=== PATIENT | male | born 1970 | race Caucasian/White ===

== ENCOUNTER 2019-01-22 08:26 | Inpatient (IN) | payer OTHER, SELFPAY ==
[2019-01-22] VITALS (20 sets, daily range): BP systolic 118–170; BP diastolic 73–106; PULSE 81–106; RESP 14–26; TEMP 36.8–36.9; O2SAT 92–100; BMI 33.7; BMI 35.8
--- NOTE | 2019-01-22 08:34 | RAD_ITS ---
STUDY: X-RAY - RIGHT TIBIA AND FIBULA REASON FOR EXAM: Male, 48 years old. Status post fall TECHNIQUE: 3 view(s) of the tibia and fibula were obtained. COMPARISON: None. FINDINGS: Trimalleolar ankle fracture with ankle mortise dislocation. No evidence of proximal tibial or fibular fracture. RAD/Tibia & Fibula 2 Views IMPRESSION: Trimalleolar ankle fracture with ankle mortise dislocation Electronically Signed: Waldemar Batista DO at 9:34 EST Tel , Service support ,
--- NOTE | 2019-01-22 08:35 | RAD_ITS ---
STUDY: X-RAY - RIGHT FOOT CLINICAL: Male, 48 years old. Fall TECHNIQUE: 2 view(s) of the foot. COMPARISON: None. FINDINGS: Comminuted and displaced ankle fracture. Right foot itself appears within normal limits RAD/Foot 2 Views IMPRESSION: Ankle fracture with dislocation. Right foot itself appears within normal limits Electronically Signed: Waldemar Batista DO at 9:33 EST Tel , Service support ,
--- NOTE | 2019-01-22 08:35 | ED.DCSUM_ITS ---
History of Present Illness Chief Complaint: Lower Extremity Injury Detail of Chief Complaint: Right ankle injury Informant: Patient Onset: Today Context: Sudden Onset Current Severity: Mild Maximum Severity: Moderate Narrative: Patient presents with injury to his right ankle. Patient states he went out to walk his dog this morning. He went to walk around a puddle and stepped into wet grass. His dog pulled on the leash and the patient fell, injuring his right ankle. He does have deformity noted. Patient denies any other injury from the fall. Past Medical History - Allergies and Home Meds Allergies/Adverse Reactions: Allergies No Known Allergies Allergy (Verified 01/22/19 08:26) Primary Care Physician: Yaniv Ring MD [Primary Care Provider] - Past Medical History: - - Prior finger and wrist surgery Smoking Status: Never smoker Review of Systems General: Denies: Chills, Fever Eyes: Denies: Visual changes - bilaterally ENT: Denies: Bilateral ear pain Cardiovascular: Denies: Chest pain Respiratory: Denies: Dyspnea, Cough Gastrointestinal: Denies: Abdominal pain, Nausea, Vomiting, Diarrhea Genitourinary: Denies: Dysuria Musculoskeletal: Reports: Arthralgias, Extremity Pain. Denies: Back pain Skin: Denies: Rash Neurological: Denies: Headache Allergy: Denies: Uticaria Physical Exam Vital Signs/Narrative: Vital Signs Temp Pulse Resp BP Pulse Ox 01/22/19 08:26 98.3 F 95 16 170/91 H 98 Inital Vital Signs reviewed: Yes General: Well nourished, Well developed Head: Normocephalic ENT: Moist mucous membranes Neck: Supple Cardiovascular: Regular rate, Regular rhythm Respiratory: No distress, CTA bilaterally Abdomen: Soft, Nontender Extremities: - - Deformity noted to right ankle and distal tib-fib. Palpable distal pulses. Good cap refill distally. No tenderness at the knee or hip. Skin: Normal color Neurological: Alert, Oriented x3 Psychological: Normal affect Diagnostic/Tx/Re-eval Impressions Tibia/Fibula X-Ray 01/22/19 08:34 IMPRESSION: Trimalleolar ankle fracture with ankle mortise dislocation Electronically Signed: Waldemar Batista DO at 9:34 EST Tel , Service support , Foot X-Ray 01/22/19 08:35 IMPRESSION: Ankle fracture with dislocation. Right foot itself appears within normal limits Electronically Signed: Waldemar Batista DO at 9:33 EST Tel , Service support , - Medical Decision Making Patient was given propofol and right ankle reduction was attempted. Postreduction x-rays reveal continued dislocation. Patient was sedated a second time and attempted ankle reduction with similar results on postreduction x-ray. I spoke with Dr. Moore and Dr. Santiago. Dr. Santiago presented to the emergency room and was able to reduce the ankle at bedside with C-arm visualization for confirmation. Dr. Santiago and will admit the patient to the hospital for surgery this weekend. Procedures - Lower Extremity Splints Lower Extremity Splint: Kamran Berman Splint Fabrication: Fabricated Location: Right Procedure(s): Patient was consented for procedural sedation with ankle reduction and splinting. Patient received a total of 140 mg of propofol. Right ankle was reduced and placed in a posterior plaster sugar tong splint. Following splint application there is good cap refill in his toes and can wiggle toes. ED Disposition - Plan for ED Patient: Disposition: Acute [facility] Diagnosis: Ankle fracture Referrals: Yaniv Ring MD [Primary Care Provider] -
[2019-01-22] MEDS: Ondansetron 4 MG/2 ML Vial IV (08:44)
[2019-01-22] MEDS: Morphine 4 MG/ML Syringe IV ×2 (08:44→11:25)
[2019-01-22] MEDS: 0.9% Normal Saline 1,000 ML 150 ML IV (08:44)
[2019-01-22] MEDS: Propofol 200 MG/20 ML Vial IV BOLUS ×2 (09:35→11:25)
--- NOTE | 2019-01-22 09:48 | RAD_ITS ---
STUDY: X-RAY - RIGHT ANKLE REASON FOR EXAM: Male, 48 years old. Trauma. Post reduction views TECHNIQUE: 3 view(s) of the ankle. COMPARISON: None. FINDINGS: Displaced fractures of the posterior and lateral malleoli. Anterior dislocation of the tibiotalar joint. Normal visualized talus and calcaneus. The visualized subtalar, talonavicular, calcaneocuboid and tarsal articulations are normal. The soft tissue structures are unremarkable. RAD/Ankle min 3 Views IMPRESSION: Displaced fractures of the posterior and lateral malleoli. Anterior dislocation of the tibiotalar joint. Electronically Signed: Joe Amin, at 7:08 EST Tel , Service support ,
--- NOTE | 2019-01-22 11:11 | RAD_ITS ---
STUDY: X-RAY - RIGHT ANKLE REASON FOR EXAM: Male, 48 years old. Post reduction TECHNIQUE: 1 view(s) of the ankle. COMPARISON: 01/22/2019 FINDINGS: Evaluation is limited as only a single lateral view was provided. Again noted is a trimalleolar fracture with stable anterior dislocation of the tibia relative to the talus. There is soft tissue swelling noted. RAD/Ankle 2 Views IMPRESSION: No significant change demonstrated on this limited, single view exam. Electronically Signed: Angelo Mercado, at 11:44 EST Tel , Service support ,
--- NOTE | 2019-01-22 11:29 | ED.RN ---
MODERATE SEDATION REPEATED DUE TO DISPLACMENT.
--- NOTE | 2019-01-22 11:32 | RAD_ITS ---
STUDY: X-RAY - RIGHT ANKLE REASON FOR EXAM: Male, 48 years old. Post reduction images of ankle fracture dislocation. TECHNIQUE: 5 intraoperative digital documentation view(s) of the ankle. COMPARISON: January 22, 2019, earlier in the day. FINDINGS: 4 seconds of fluoroscopy time were utilized for a total DAP of 0.9134 cGy/cm2. Images show partial reduction of the fracture dislocation. RAD/Ankle min 3 Views IMPRESSION: Digital documentation images as described. Electronically Signed: Hayden Bello MD at 14:18 EST , Service support ,
--- NOTE | 2019-01-22 12:42 | RAD_ITS ---
STUDY: X-RAY - RIGHT ANKLE REASON FOR EXAM: Male, 48 years old. Post reduction TECHNIQUE: 3 view(s) of the ankle. COMPARISON: January 22, 2019 ankle x-ray 9:50 AM FINDINGS: Patient is in a splint. There is reduction of the dislocation of the tibiotalar joint. There is a visualized fracture of the fibula and posterior malleolus. There is still a widened appearance of the tibial talar joint on the oblique view. RAD/Ankle min 3 Views IMPRESSION: Right ankle fracture dislocation status post reduction of the tibiotalar dislocation. Electronically Signed: Lourdes Garrido MD at 13:58 EST Tel , Service support ,
--- NOTE | 2019-01-22 12:45 | HP.PCM_ITS ---
Problem List (1) Fracture of ankle, trimalleolar, right, closed Status: Acute (2) Right ankle pain Status: Acute History of Present Illness Date of Admission: 01/22/19 Chief Complaint: ankle fracture The patient is a 48 year old M with significant past medical history of prediabetes was walking his dog who pulled on the leash and caused him to fall on his right lower extremity. He heard a pop and was taken to the emergency room in which a trimalleolar ankle fracture was identified. Reduction in the emergency room was performed and this was not retained. I performed an additional reduction and splinted this with improved under propofol sedation. He rates his pain after reduction is a 3 out of 10. He denies other injuries this afternoon or any loss of consciousness. He denies other recent history of fractures. He is very active at work and would like to proceed with surgery given this is unstable. 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 Smoking Status: Never smoker Tobacco Use: Non-smoker Alcohol: Occasional - social alcohol use Drugs: None - *Family History Sibling History Items: Diabetes Review of Systems Constitutional: Denies: Fever, Fatigue Eyes: Denies: Vision Change HEENT: Denies: Sinus Drainage, Sore Throat, Visual Changes Cardiovascular: Denies: Chest Pain, Claudication, Orthopnea Respiratory: Denies: Shortness of Breath Gastrointestinal: Denies: Nausea, Vomiting Musculoskeletal: Reports: Joint Tenderness, Leg Pain Skin: Denies: Wounds Neurological: Denies: Numbness Hematologic/ Lymphatic: Denies: Easy Bruising, Easy Bleeding, Hx of blood clot VTE Information - Inpt Only VTE Present on Admission: No VTE Mechan Device Prophylaxis: SCD's VTE Pharm Prophylaxis ordered?: Yes Patient Problems: Active and Suspected Problems Fracture of ankle, trimalleolar, right, closed (Acute) Right ankle pain (Acute) Ankle fracture (Acute) - Physical Exam Vitals/I&O's: Vital Signs Temp Pulse Resp BP Pulse Ox 98.3 F 87 22 H 128/80 H 100 01/22/19 08:26 01/22/19 12:41 01/22/19 12:41 01/22/19 12:41 01/22/19 12:41 Oxygen Flow Rate (L/min) [6] 3 Oxygen Flow Rate (L/min) [5] 2 Oxygen Flow Rate (L/min) [4] 99 Oxygen Flow Rate (L/min) [2] 4 Oxygen Flow Rate (L/min) [1 ( 4 Initial Baseline)] Oxygen Flow Rate (L/min) 4 Oxygen Delivery Method [6] Nasal Cannula Oxygen Delivery Method [5] Nasal Cannula Oxygen Delivery Method [4] Nasal Cannula Oxygen Delivery Method [3] Nasal Cannula Oxygen Delivery Method [2] Nasal Cannula Oxygen Delivery Method [1 ( Nasal Cannula Initial Baseline)] Oxygen Delivery Method Nasal Cannula Weight: 106.594 kg Body Mass Index (BMI) 33.7 General: Alert, Oriented x3, Cooperative HEENT: Atraumatic Extremities: No cyanosis, Capillary Refill Less than 3 Seconds, No Calf Tenderness, Diminished Peripheral Pulses, Edema - Mild to right lower extremity Skin: - - There are no skin discontinuities or fracture blisters identified. No distinct ecchymosis or erythema noted at this time Musculoskeletal: - - No skin tenting noted after ankle reduction performed. The ankle is in a maintained rectus position with splint in place. The compartments of the right lower extremity and foot remain soft to palpate Neurological: - - Epicritic sensation is intact to light touch to foot and ankle dermatomes right lower extremity Psych/Mental Status: Normal Affect, Appropriate Current Medications Sodium Chloride () 1,000 mls @ 150 mls/hr IV .Q6H40M [facility] Last Admin: 01/22/19 08:44 Dose: 150 mls/hr Documented by: Assessment/Plan All Active Problems Fracture of ankle, trimalleolar, right, closed (Acute) Right ankle pain (Acute) Ankle fracture (Acute) Stable right trimalleolar ankle fracture versus pilon suspected Right ankle pain Prediabetes I reviewed and discussed his case including pre-and post reduction x-rays which demonstrate improved alignment of his ankle fracture dislocation of the right lower extremity. No additional fractures or dislocations are noted upon evaluation of the right foot x-rays. At the time of evaluation his neurovascular status appeared to be intact with out any apparent fracture blisters. This ankle fracture pattern is very unstable and I am concerned this is a P line. I recommend surgical intervention. A CAT scan was ordered to better understand the fracture pattern for surgical planning. The splint was reapplied in a padded manner in a rectus position. He is advised to ice and elevate for pain inflammation management. Strict nonweightbearing to the right lower extremity is recommended. The tentative plan is to go to the operating room for repair tomorrow pending CT scan results. I will also asked medicine team to be in consultation for preoperative assessment given his medical history and for preoperative optimization which will be greatly appreciated. The preoperative indications, planned procedure, possible benefits, risk, complications, and anticipated healing time management were discussed in detail detail with the patient today. He understands risk and complications may include are not limited to the following: Pain, swelling, scarring, need for further surgery the common hardware failure, chronic pain, allergic reaction, blood clot, arthritis, infection, delayed or nonhealing, loss of limb, function, or life. No guarantees were made. The informed surgical consent will be obtained likely for open reduction internal fixation versus external fixation of right ankle fracture after I reviewed the advanced imaging studies. I will place preoperative orders after review this imaging including n.p.o., hold anticoagulation medication, etc. Preoperative diagnostic data was ordered including CBC, CMP, and EKG. Please do not hesitate to call if you have any questions. Bhavna Santiago DPM, FACF[facility] [phone]
--- NOTE | 2019-01-22 13:16 | CT_ITS ---
STUDY: CT RIGHT ANKLE WITHOUT CONTRAST REASON FOR EXAM: Male, 48 years old. Status post fall, fracture RADIATION DOSAGE (If Supplied By Facility): CTDIvol = ( 15.35 ) mGy, DLP = ( 537.98 ) mGycm TECHNIQUE: Thin section transaxial imaging of the ankle was obtained, with sagittal and coronal reconstructed images. Individualized dose optimization techniques were used for this CT. COMPARISON: Right ankle January 22, 2019 FINDINGS: There is a comminuted fracture of the distal tibia with fracture lines extending into the medial malleolus with widening of the tibiotalar joint, posterior malleolus with a gap of at least 3.5 mm seen at the talar surface. There is a comminuted fracture of the distal fibula with the fracture sitting slightly displaced to the right at the fracture site. The tibial talar joint isn''t widened both on the medial and the lateral side. The sagittal view shows a slightly open appearance of the anterior aspect of the ankle joint with a splayed appearance of the tibia over the talus. The talus appears intact. Normal talus, calcaneus, navicular and cuboid tarsal bones. Normal subtalar, talonavicular and calcaneocuboid articulations. Normal navicular-cuneiform, cuneiform tarsal bones and intercuneiform articulations. Normal tarsometatarsal articulations and visualized metatarsi. There is diffuse soft tissue edema. CT/Coronals Sag Multi Obl 3-D Rec IMPRESSION: Trimalleolar fracture with disruption of the ankle mortise which includes Comminuted fracture of the distal tibia with persistent displacement and dislocation. Comminuted fracture of the distal fibula. Electronically Signed: Lourdes Garrido MD at 15:04 EST Tel , Service support ,
--- NOTE | 2019-01-22 13:16 | CT_ITS ---
STUDY: CT RIGHT ANKLE WITHOUT CONTRAST REASON FOR EXAM: Male, 48 years old. Status post fall, fracture RADIATION DOSAGE (If Supplied By Facility): CTDIvol = ( 15.35 ) mGy, DLP = ( 537.98 ) mGycm TECHNIQUE: Thin section transaxial imaging of the ankle was obtained, with sagittal and coronal reconstructed images. Individualized dose optimization techniques were used for this CT. COMPARISON: Right ankle January 22, 2019 FINDINGS: There is a comminuted fracture of the distal tibia with fracture lines extending into the medial malleolus with widening of the tibiotalar joint, posterior malleolus with a gap of at least 3.5 mm seen at the talar surface. There is a comminuted fracture of the distal fibula with the fracture sitting slightly displaced to the right at the fracture site. The tibial talar joint isn''t widened both on the medial and the lateral side. The sagittal view shows a slightly open appearance of the anterior aspect of the ankle joint with a splayed appearance of the tibia over the talus. The talus appears intact. Normal talus, calcaneus, navicular and cuboid tarsal bones. Normal subtalar, talonavicular and calcaneocuboid articulations. Normal navicular-cuneiform, cuneiform tarsal bones and intercuneiform articulations. Normal tarsometatarsal articulations and visualized metatarsi. There is diffuse soft tissue edema. CT/Extremity Lower without Contra IMPRESSION: Trimalleolar fracture with disruption of the ankle mortise which includes Comminuted fracture of the distal tibia with persistent displacement and dislocation. Comminuted fracture of the distal fibula. Electronically Signed: Lourdes Garrido MD at 15:04 EST Tel , Service support ,
--- NOTE | 2019-01-22 13:52 | PCM.CONS.GEN ---
Problem List (1) Obesity (BMI 30.0-34.9) Status: Chronic (2) Glucose intolerance Status: Chronic Comment: HGBA1C has been as high as 6.0 in the past....but then he lost 25 lbs (3) Low HDL (under 40) Status: Chronic (4) Dyslipidemia Status: Chronic (5) Fracture of ankle, trimalleolar, right, closed Status: Acute (6) Right ankle pain Status: Acute Qualifiers: Chronicity: acute Qualified Code(s): M25.571 - Pain in right ankle and joints of right foot Reason for Consult Date of Consultation: 01/22/19 Reason for Consultation: R ankle pain and deformity after a fall History of Present Illness: The patient is a 48 year old M with a past medical history of prediabetes and obesity who was walking his dog today ( a 270 lb [place]ast[place]) and the dog pulled on the leash and caused him to fall on his right side. He immediately had pain in his R ankle. Ankle x-ray in the emergency room revealed a trimalleolar fracture with dislocation of the ankle mortise. The ankle was reduced in the ED by Dr. Santiago and a splint was applied. She plans on taking the pt to surgery on 01/23/19 for ORIF and has asked the hospitalist service to consult for medical management. Vital signs at presentation to the emergency department were temperature 98.3, pulse rate 95, blood pressure 170/91, respiratory rate 16 and pulse ox on room air ranged from 94 to 97%. No lab was drawn in the ED. An EKG was ordered but, not completed yet. His only medication is a testosterone booster. He does not have a PCP. He denies any hx of heart disease, HTN, HLD. He is a non-smoker....smoked for 1 year and quit at the age of 18. No FH of CAD. Denies CP with exertion or SOB with exertion. He works out at the gym regularly. Tells me that at one time his HGBA1C was 6.0 and then he went on a low carb diet and lost weight and the last HGBA1C was 5.6%. 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 Denies: Chills, Fever Eyes: Denies: Blurred vision HEENT: Denies: Head Aches, Sinus Congestion, Sinus Drainage Cardiovascular: Denies: Chest Pain, Chest Pressure, Chest Tightness, Edema, Heaviness, Light Headedness, Palpitations, Syncope Respiratory: Denies: Cough, Shortness of breath at rest, Sputum production Gastrointestinal: Denies: Abdominal Pain, Diarrhea, Nausea, Vomiting Genitourinary: Denies: Dysuria Musculoskeletal: Reports: Joint Pain - acute R ankle pain. Denies: Joint Tenderness Skin: Denies: Rash, Wounds Neurological: Denies: Numbness, Tingling, Focal weakness Psychiatric: Denies: Anxiety, Depression, Homicidal Ideations, Suicidal Ideations Endocrine: Denies: Hx of Thyroiditis Hematologic/ Lymphatic: Denies: Easy Bruising, Easy Bleeding, Hx of blood clot Patient Problems: Active and Suspected Problems Fracture of ankle, trimalleolar, right, closed (Acute) Right ankle pain (Acute) - Physical Exam Vitals/I&O's: Vital Signs Temp Pulse Resp BP Pulse Ox 98.3 F 85 20 H 128/76 H 98 01/22/19 08:26 01/22/19 12:52 01/22/19 12:52 01/22/19 12:52 01/22/19 12:52 Oxygen Flow Rate (L/min) [6] 3 Oxygen Flow Rate (L/min) [5] 2 Oxygen Flow Rate (L/min) [4] 99 Oxygen Flow Rate (L/min) [2] 4 Oxygen Flow Rate (L/min) [1 ( 4 Initial Baseline)] Oxygen Flow Rate (L/min) 4 Oxygen Delivery Method [6] Nasal Cannula Oxygen Delivery Method [5] Nasal Cannula Oxygen Delivery Method [4] Nasal Cannula Oxygen Delivery Method [3] Nasal Cannula Oxygen Delivery Method [2] Nasal Cannula Oxygen Delivery Method [1 ( Nasal Cannula Initial Baseline)] Oxygen Delivery Method Nasal Cannula Weight: 235 lb Body Mass Index (BMI) 33.7 General: Alert, Oriented x3, Cooperative, Well developed, Well nourished HEENT: Atraumatic, PERRLA, EOMI, Normocephalic Oral: Dry Mucosa Neck: Supple, No JVD, Negative Carotid Bruits, No Nodes, No Nuchal Rigidity, Trachea Midline Lungs: Clear to auscultation, Normal air movement Cardiovascular: Regular rate, Regular Rhythm, Normal S1, Normal S2, No murmurs, No Ectopic Activity, No rub noted, No Gallop Abdomen: Bowel Sounds Present, Soft, Non Tender, Non-Distended, Obese Extremities: No clubbing, No cyanosis, No edema, Capillary Refill Less than 3 Seconds, Peripheral Pulses Normal, - - denies numbness in the left foot and the toes are warm with intact sensation Skin: No rashes, No breakdown Musculoskeletal: No Tenderness to Palpation of Joints or Extremities, - - RLE is in a splint with heavy padding Neurological: Cranial nerves II-XII grossly intact, Neuro grossly intact Psych/Mental Status: Normal Affect, Appropriate Current Medications Hydrocodone Bitart/Acetaminophen ([place] 5mg-325mg) 1 tablet PO Q6H PRN PRN PRN Reason: Pain Score 4-5/10 Docusate Sodium (Colace) 100 mg PO BID PRN PRN PRN Reason: Constipation Sodium Chloride () 1,000 mls @ 150 mls/hr IV .Q6H40M [facility] Last Admin: 01/22/19 08:44 Dose: 150 mls/hr Documented by: Morphine Sulfate () 2 mg IV Q3H PRN PRN PRN Reason: Pain Score 6-10/10 Ondansetron HCl (Zofran) 4 mg IV Q8H PRN PRN PRN Reason: NAUSEA/VOMITING Assessment/Plan All Active Problems Fracture of ankle, trimalleolar, right, closed (Acute) Right ankle pain (Acute) Impressions 1. Closed traumatic trimalleolar fracture of the right ankle 2. Diabetes mellitus type 2 3. Dyslipidemia with LDL of 133 and an HDL of less than 40 4. Obesity Risk for serious complications from surgery are less than average. surgical risk calculator results placed on the chart. The testosterone increases risk of polycythemia and increases risk of DVT. I recommended he avoid using testosterone while he is non-weight bearing and in a cast. Will give 1 dose of Lovenox 40 mg now and restart anticoagulation after surgery when OK with Dr. Santiago. I informed him of the HGBA1C of 7.2 and he has already been seen by the [facility]er. Would start a stain and Glucophage post-op when taking a regular diet. Goal LDL is 70 or less. Encouraged him to find a PCP and he is going to follow up with Dr. Ring. Would send a copy of the DC summary to Dr. Ring and I will send him a copy of the consult with the patient's permission. Code Visit Inpatient E&M: 56892 Subs Hosp L3
[2019-01-22 14:04] LABS: Absolute Lymphocyte Count 2.25 X10^3/uL (0.83-4.51); Absolute Neutrophil Count 8.6 X10^3/uL (2.0-7.7); Basophil# 0.07 X10^3/uL; Basophil% 0.6 % (0-1); Eosinophil# 0.07 X10^3/uL; Eosinophils% 0.6 % (0-5); Hematocrit 45.1 % (40-54); Hemoglobin 15.7 g/dL (13.0-16.5); Lymphocyte # 2.25 X10^3/ul (4.0); Lymphocyte % 18.8 % (19-41); Mean Corp Hgb Conc 34.8 g/dL (32-36); Mean Corpuscular Hgb 32.7 pg (27.0-32.0); Mean Platelet Vol. 9.2 fl (6.2-12.0); Monocyte# 0.87 X10^3/uL; Monocyte% 7.3 % (0-10); NRBC Flagged by Analyzer 0 % (0-5); Neutrophil # 8.61 X10^3/uL (2.7-7.7); Neutrophil % 72.1 % (47-70); Platelet Count 252 K/mm3 (150-450); RBC Distribution Width SD 42.1 fl (35.1-43.9); White Blood Count 11.9 K/mm3 (4.4-11.0)
[2019-01-22 14:32] LABS: ALB/GLOB Ratio 1.2 RATIO (0.9-2.4); AST(SGOT) 11 U/L (15-37); Alanine Aminotransfer ALT/SGPT 36 U/L (16-61); Albumin, Serum 3.6 g/dL (3.2-5.0); Alkaline Phosphatase 61 U/L (45-117); Anion Gap 4 (5-15); BUN 12 mg/dL (7-18); BUN/Creat Ratio 12.7 RATIO (10-20); Calcium,Total 8.2 mg/dL (8.5-10.1); Chloride 107 mmol/L (98-107); Cholesterol 209 mg/dL (200); Creatinine, Serum 0.94 mg/dL (0.70-1.30); EST Glomerular Filtration Rate 90 mL/min (>60); Est Glom Filt Rate - Afr Amer 108 mL/min (>60); Estimated Creatinine Clearance 97.07 ml/min; Globulin 3.1 g/dL (2.2-4.2); Glucose 149 mg/dL (74-106); High Density Lipoprotein 38 mg/dL; Potassium 4.2 mmol/L (3.5-5.1); Protein, Total 6.7 g/dL (6.4-8.2); Sodium Level 139 mmol/L (136-145); Triglycerides 189 mg/dL; Very Low Density Lipoprotein 38 mg/dL (5-40)
[2019-01-22 14:46] LABS: Hemoglobin A1c 7.2 % (4.2-6.3)
[2019-01-22 15:19] LABS: International Normalized Ratio 1.1; Prothrombin Time (Protime)PT. 13.7 SECONDS (11.7-14.9)
[2019-01-22] MEDS: Enoxaparin 40 MG/0.4 ML Syringe SC (16:34)
[2019-01-22] MEDS: HYDROcodone Bitartrate/Apap 5/325 Tablet PO ×2 (16:34→23:16)
[2019-01-22 18:01] LABS: Bedside Glucose 233 mg/dL (70-110)
[2019-01-22] MEDS: Insulin Lispro 100 UNIT/ML INSULN.PEN SC ×2 (18:01→21:57)
[2019-01-22] MEDS: Calcium Carb/Vitamin D 1 TABLET Tablet PO (18:02)
[2019-01-22] MEDS: Lactated Ringers 1,000 ML 100 ML IV (21:42)
[2019-01-22] MEDS: Morphine 2 MG/ML Syringe IV (21:43)
[2019-01-22] MEDS: Zolpidem Tartrate 5 MG Tablet PO (23:16)
[2019-01-23] VITALS (18 sets, daily range): BP systolic 120–151; BP diastolic 57–103; PULSE 76–103; RESP 16–20; TEMP 36.6–37.2; O2SAT 94–99; BMI 35.8
[2019-01-23 00:11] LABS: Bedside Glucose 189 mg/dL (70-110)
[2019-01-23] MEDS: Insulin Lispro 100 UNIT/ML INSULN.PEN SC ×4 (06:45→22:04)
[2019-01-23] MEDS: Lactated Ringers 1,000 ML 100 ML IV ×2 (06:46→13:55)
[2019-01-23] MEDS: Morphine 2 MG/ML Syringe IV (06:50)
[2019-01-23 07:00] LABS: Bedside Glucose 192 mg/dL (70-110)
[2019-01-23 07:05] LABS: Anion Gap 6 (5-15); BUN 14 mg/dL (7-18); BUN/Creat Ratio 13.7 RATIO (10-20); Calcium,Total 8.3 mg/dL (8.5-10.1); Chloride 101 mmol/L (98-107); Creatinine, Serum 1.02 mg/dL (0.70-1.30); EST Glomerular Filtration Rate 82 mL/min (>60); Est Glom Filt Rate - Afr Amer 99 mL/min (>60); Estimated Creatinine Clearance 89.46 ml/min; Glucose 211 mg/dL (74-106); Potassium 4.1 mmol/L (3.5-5.1); Sodium Level 134 mmol/L (136-145)
--- NOTE | 2019-01-23 08:30 | RAD_ITS ---
STUDY: X-RAY - RIGHT ANKLE REASON FOR EXAM: Male, 48 years old. ORIF TECHNIQUE: 11 intraoperative fluoroscopic view(s) of the ankle. COMPARISON: 01/22/2019 FINDINGS: Fluoroscopic guidance was provided during open reduction and internal fixation of previously seen right ankle fractures. Correlation with the operative report is recommended. RAD/Ankle min 3 Views IMPRESSION: As above Electronically Signed: Angelo Mercado, at 13:27 EST Tel , Service support ,
--- NOTE | 2019-01-23 13:06 | RAD_ITS ---
STUDY: X-RAY - RIGHT ANKLE REASON FOR EXAM: Male, 48 years old. ORIF TECHNIQUE: 3 view(s) of the ankle. COMPARISON: 01/22/2019 FINDINGS: The patient is status post open reduction and internal fixation of the previously seen trimalleolar fracture. The hardware is intact and alignment is satisfactory. RAD/Ankle min 3 Views IMPRESSION: Status post open reduction and internal fixation with intact hardware and satisfactory alignment. Electronically Signed: Angelo Mercado, at 16:32 EST Tel , Service support ,
--- NOTE | 2019-01-23 13:11 | OP.PCM_ITS ---
Problem List (1) Fibula fracture Status: Acute Qualifiers: Encounter type: subsequent encounter Fibula location: distal Fracture type: closed Laterality: right (2) Pilon fracture of right tibia Status: Acute Qualifiers: Encounter type: subsequent encounter Fracture type: closed Fracture alignment: displaced Fracture healing: with routine healing Qualified Code(s): S82.871D - Displaced pilon fracture of right tibia, subsequent encounter for closed fracture with routine healing (3) Right ankle pain Status: Acute Qualifiers: Chronicity: acute Qualified Code(s): M25.571 - Pain in right ankle and joints of right foot Report of Operation Date of Procedure: 01/23/19 Pre-Operative Diagnosis: Right fibula fracture. Right pilon fracture Post-Operative Diagnosis: Right fibula fracture. Right pilon fracture Surgery/Procedure Performed:: Open reduction internal fixation of right fibula fracture. Open reduction internal fixation of right pilon fracture Description of Surgical Findings:: Hemostasis: Well-padded pneumatic right thigh tourniquet, 315 mmHg, 120 minutes Materials: 2-0 and 3-0 Vicryl, 3-0 nylon, 1 Arthrex posterior lateral fibula anatomic plate, 1 cortical 2.7 screw, 2 locking 2.7 screws, one 3.0 cancellus screw, one 3.5 cortical screws, two 3.5 locking screws, four 4.0 cannulated short threaded screws Complications: None Specimens: None The patient tolerated the procedure and anesthesia well. He was transported to the PACU with vital signs stable and vascular status intact to the right lower extremity. Postoperative x-rays were obtained while in the operating room demonstrating adequate reduction of the fracture patterns with proper placement and trajectory of internal fixation. He will continue to stay at the hospital for pain control and medical management. Postoperative orders were entered electronically. compensation programs manager: none - Surgeon: Bhavna Santiago DPM. [facility] Administrator: Ree Clemens PGY2 Type of Anesthesia:: General/Regional - administered preoperative Anesthesiologist: Mane Padilla Specimen's removed: none Estimated Blood Loss (mL): < 200 mL Description of Procedure: Indications: This 48-year-old male recently diagnosed with diabetes sustained a mechanical fall on 01/22/2018 when he was walking his dog. He went to avoid a puddle and his large dog pulled on the leash. He slipped and fell. He had immediate ankle deformity and pain in which he presented to the emergency room. Reduction was performed. X-rays demonstrated comminuted displaced distal right fibula fracture and also a large posterior malleolus fracture fragment with dislocation of the tibiotalar joint. His neurovascular status remained intact and he did not have any fracture blisters. His preoperative CT scan confirmed fragmentation and compression of the fibula fracture site. There also appears to be a posterior lateral and posterior medial fracture pattern that involves more than 30% of the joint surface in the medial posterior fragment does extend in an oblique manner and to the medial malleolus. There were no signs of talus fractures or other acute injuries. There was no visualized syndesmosis diastases or gapping noted. The preoperative indications, planned procedure, possible benefits, risk, complications, and anticipated healing time and management were discussed in detail with the patient. He understands and elects to proceed with surgery at this time. No guarantees are made. We discussed alternative options such as conservative care with immobilization. I do not recommend this due to the instability of his fracture pattern. 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 He elects to proceed forward with repair. He understands risk and complications may include but are not limited to the following: pain, swelling, scarring, need for further surgery, complex pain syndrome, blood clot, allergic reaction, hardware failure, infection, delayed wound healing, loss of limb, function, or life. Informed surgical consent was signed. The surgical limb was also signed. I answered all of his questions to his satisfaction. Procedure in detail: The patient was transported to the operating room via cart and placed on the operating table in a prone position. He was well-padded and his leg was raised on blankets to allow good exposure. A well-padded pneumatic right thigh tourniquet was placed. The anesthesia team administered IV Ancef preoperative (2g). The anesthesia team provided a right lower extremity regional block preoperative. The anesthesia team also initiated general anesthesia. The right lower extremity was prepped and draped in the usual aseptic manner. The right lower extremity was exsanguinated with an Esmarch bandage and the tourniquet was inflated at this time. Surgery began in the following manner: Attention was first directed to the posterior lateral aspect of the right ankle in which a 10 cm linear incision was made at the midway point between the lateral margin of the Achilles and the medial margin of the posterior fibula through the skin. Blunt dissection was performed down to the fascial layer taking care to identify, protect, and retract all neurovascular structures of this point and throughout the remainder of surgery. The peroneal tendon compar tment was immediately identified and these were gently dissected off of the posterior aspect of the fibula to allow good exposure of the fracture hematoma. The fracture fragments were comminuted, compressed, and rotated fracture fragments. This was gently mobilized with a combination of a intermittent distractor, K wire joystick technique, and bone reducing forceps. This was re- consolidated and a posterior lateral anatomically locking plate was applied. The distal screw holes were utilized first. Proper AO fixation technique was utilized. Next, the proximal portion of the plate was secured with a cortical 3.5 screw to allow good approximation of the plate on the bone. Further cortical and locking screws were applied to the plate. There was an anterior fibular fragment that was malrotated during the injury and reapproximated that required application of a free 2.7 screw. This was applied according to proper AO fixation technique utilizing lag screw technique. Solid fixation was achieved. The reduction clamps and temporary fixation were removed and this was stressed with direct visualization with intraoperative fluoroscopy. The fibula moved as one solid unit and was considered stable at this time. The plate is acting more as a buttress plate due to the severe comminution. It is noted the fibular length was maintained and the fracture fragments were in good approxima tion. Next, the flexor hallucis longus muscle belly fascia was gently reflected off of the remaining posterior lateral portion of the fibula and posterior distal tibia by hand and gentle prakash elevator use. The distal posterior lateral fragment was directly visualized. A K wire was applied to this fragment site and the fracture fragment was mobilized with joystick technique in combination with an kle dorsiflexion and plantar flexion. This was temporarily fixated with guide pins that were later used for application of cannulated screws utilizing proper AO fixation technique. This was irrigated with saline. Next, attention was directed to the posterior medial aspect of the ankle in which the posterior medial fracture fragment was next addressed. A 5 cm linear incision was made through the skin along the posterior medial margin of the distal tibia and medial malleolus. Blunt dissection was performed down to the flexor retinaculum. A rent was made in the flexor retinaculum and this was released and tagged. The posterior tibialis tendon sheath was next identified and care was taken to reflect the posterior tibialis tendon and other adjacent tendons and neurovascular bundle laterally. Direct visualization of the posterior medial distal tibia fracture fragment site that also extended onto the medial malleolus was seen. This site was also mobilized and irrigated with saline. A guidepin was applied from the posterior to anterior position to allow cannulated application of 4.0 short thread screw. Additional fixation with 4.0 short thread screw was applied from the medial to lateral orientation. Fracture reduction was directly visualized and solid fixation was achieved. Intraoperative fluoroscopy was utilized at this time to confirm anatomic fracture reduction. The articular surface of the tibiotalar joint very well aligned and distinct compression of the fracture fragments was also visualized. The placement of the plates and screws are in the desired trajectory and position. The ankle was taken through a smooth gliding sagittal plane range of motion without any crepitation. A cotton test was next performed under live fluoroscopy to evaluate for any syndesmosis instability. An additional ankle dorsiflexion external rotation test and stress inversion/eversion test was performed. There was no laxity or instability noted to any of these sites and additional syndesmosis or deltoid repair was not deemed necessary. Saline irrigation was performed. The flexor retinaculum was repaired utilizing nylon suture. The deeper closure to reapproximate the fascial department was performed with 2-0 Vicryl. Additional deep closure was performed with Vicryl in a layered closure. The skin was reapproximated utilizing 3-0 nylon with horizontal mattress and simple suture technique. A postoperative dressing consisting of Betadine soaked Adaptic, forward for gauze, abdominal pads, Kerlix was applied. The right lower extremity was next splinted with a posterior mold and sugar tong splint in a well-padded manner in the neutral position. After procedure: The patient tolerated the procedure and anesthesia well. Postoperative x-rays were reviewed prior to leaving the operating room as noted. He was advised to ice and elevate for pain and inflammation management. He was advised to maintain strict nonweightbearing status to the right lower extremity with assistive device. He will work with physical and occupational therapy tomorrow to confirm he is able to do so. It is noted he had an upcoming vacation planned and I do not recommend he travels on an airplane in the near future. I will provide a note regarding these recommendations that are medically necessary. He will be transferred back to the medical surgical floor upon continued PACU stability and will stay for further medical management and pain control. Medical management is greatly appreciated. It is noted he is recently diagnosed with diabetes and he will be started on a treatment plan including nutritional counseling. His hemoglobin A1C was 7.2%. He is also being screened for a vitamin D deficiency and supplementation will be started if indicated. The results are pending. DVT prophylaxis will also be restarted tomorrow morning and after discharge during his initial period of immobilization. I will follow him closely while in house. Bhavna Santiago DPM, [facility] Grafts/Implants Used: arthrex - Complications none - Admit VTE Documentation VTE Present on Admission: No VTE Mechan Device Prophylaxis: SCD's VTE Pharm Prophylaxis ordered?: Yes
[2019-01-23 13:15] LABS: Bedside Glucose 291 mg/dL (70-110)
[2019-01-23 16:40] LABS: Bedside Glucose 289 mg/dL (70-110)
--- NOTE | 2019-01-23 17:00 | PCM.PROGNOTE ---
Patient Problems: Active and Suspected Problems Fracture of ankle, trimalleolar, right, closed (Acute) Right ankle pain (Acute) Subjective: Patient was seen and examined postoperatively today. He is awake and appropriate. He is afebrile Vital signs are stable Anesthesia records were reviewed. No hypotension or hypoxia intraoperatively. Dr. Santiago's orders were reviewed. All labs from today was personally reviewed. Sodium was low at 134. Blood sugar record was reviewed and the blood sugars are high-more likely than not secondary to stress but he has also been receiving lactated Ringer's. He states his pain is adequately controlled. He denies cough, chest pain, shortness of breath, palpitations, nausea. - Physical Exam Vitals/I&O's: Vital Signs Temp Pulse Resp BP Pulse Ox 98.4 F 92 20 H 120/77 95 01/23/19 16:15 01/23/19 16:15 01/23/19 16:15 01/23/19 16:15 01/23/19 16:15 Oxygen Flow Rate (L/min) [6] 3 Oxygen Flow Rate (L/min) [5] 2 Oxygen Flow Rate (L/min) [4] 99 Oxygen Flow Rate (L/min) [2] 4 Oxygen Flow Rate (L/min) [1 ( 4 Initial Baseline)] Oxygen Flow Rate (L/min) 2 Oxygen Delivery Method [6] Nasal Cannula Oxygen Delivery Method [5] Nasal Cannula Oxygen Delivery Method [4] Nasal Cannula Oxygen Delivery Method [3] Nasal Cannula Oxygen Delivery Method [2] Nasal Cannula Oxygen Delivery Method [1 ( Nasal Cannula Initial Baseline)] Oxygen Delivery Method Room Air Weight: 249 lb 9.012 oz Body Mass Index (BMI) 35.8 Intake and Output for Last 24 Hours 01/21/19 01/22/19 01/23/19 23:59 23:59 23:59 Intake Total 1447.5 / 2047.5 4906.67 / 4906.67 Output Total 925 / 925 Balance 1447.5 / 2047.5 3981.67 / 3981.67 General: Alert, Oriented x3, Cooperative, No apparent distress, - - appears pale HEENT: Atraumatic, PERRLA, EOMI Oral: Dry Mucosa Neck: Supple, Trachea Midline Lungs: Clear to auscultation, Normal air movement Cardiovascular: Regular rate, Regular Rhythm, Normal S1, Normal S2, No murmurs, No rub noted, No Gallop Abdomen: Bowel Sounds Present, Soft, Non Tender, Non-Distended Extremities: - - good sensation in the toes of both feet. Toes are warm BL. Skin: No rashes Neurological: Cranial nerves II-XII grossly intact, Neuro grossly intact Laboratory Results 01/22/19 17:55: POC Glucose 233 H 01/22/19 21:56: POC Glucose 189 H 01/23/19 04:35: Sodium 134 L, Potassium 4.1, Chloride 101, Carbon Dioxide 27.0, Anion Gap 6, BUN 14, Creatinine 1.02, Estim Creat Clear Calc 89.46, Est GFR (MDRD) Af Amer 99, Est GFR (MDRD) Non-Af 82, BUN/Creatinine Ratio 13.7, Glucose 211 H, Calcium 8.3 L 01/23/19 06:44: POC Glucose 192 H 01/23/19 13:08: POC Glucose 291 H 01/23/19 16:30: POC Glucose 289 H Current Medications Hydrocodone Bitart/Acetaminophen ([place] 5mg-325mg) 1 tablet PO Q6H PRN PRN PRN Reason: Pain Score 4-5/10 Last Admin: 01/22/19 23:16 Dose: 1 tablet Documented by: Calcium/Vitamin D (Os-Fidel 500mg + D) [facility] Last Admin: 01/23/19 14:12 Dose: Not Given Documented by: Docusate Sodium (Colace) 100 mg PO BID PRN PRN PRN Reason: Constipation Sodium Chloride () 1,000 mls @ 75 mls/hr IV .[id number] [facility] Insulin Human Lispro (Humalog Kwikpen (Bkc)) 0 unit SC [facility]; Protocol Last Admin: 01/23/19 16:32 Dose: 3 u Documented by: Morphine Sulfate () 2 mg IV Q3H PRN PRN PRN Reason: Pain Score 6-10/10 Last Admin: 01/23/19 06:50 Dose: 2 mg Documented by: Ondansetron HCl (Zofran) 4 mg IV Q8H PRN PRN PRN Reason: NAUSEA/VOMITING Sodium Chloride () 10 - 40 ml IV UD PRN PRN Reason: SALINE FLUSH Zolpidem Tartrate (Ambien (Generic)) 5 mg PO QHS PRN PRN PRN Reason: INSOMNIA Last Admin: 01/22/19 23:16 Dose: 5 mg Documented by: Medical Necessity - Tobacco Use Smoking Status: Former smoker - smoked for a toatl of 1 year and quit when he was 18 YOA Tobacco Use: Non-smoker Assessment/Plan All Active Problems Fracture of ankle, trimalleolar, right, closed (Acute) Right ankle pain (Acute) Impressions 1. Closed traumatic trimalleolar fracture of the right ankle - S/P ORIF today. No external fixator was required. He is able to ambulate with assist. 2. Diabetes mellitus type 2 - HGBA1C 7.2. Seen by the sales manager. 2200 calorie diet. Low fat. Has not had anything but a small amount of Gatorade today. Will start Metformin when he is taking a diet 3. Dyslipidemia with LDL of 133 and an HDL of less than 40. Start Lipitor 10 mg QHS. 4. Obesity- weight loss advised. The testosterone increases risk of polycythemia and increases risk of DVT. I recommended he avoid using testosterone while he is non-weight bearing and in a cast. Change the IV fluid to NS - DC when he is able to take a diet with no nausea. Continue to monitor BS's AC and HS and increase the SSI to med-high Code Visit Inpatient E&M: 38110 Subs Hosp L2
[2019-01-23] MEDS: Calcium Carb/Vitamin D 1 TABLET Tablet PO (18:37)
[2019-01-23] MEDS: 0.9% Normal Saline 1,000 ML 75 ML IV (18:38)
[2019-01-23 22:20] LABS: Bedside Glucose 278 mg/dL (70-110)
[2019-01-24 01:55] VITALS: BP 117/61; PULSE 101; RESP 18; TEMP 37; O2SAT 93
[2019-01-24] MEDS: HYDROcodone Bitartrate/Apap 5/325 Tablet PO (06:47)
[2019-01-24] MEDS: 0.9% Normal Saline 1,000 ML 75 ML IV (06:48)
[2019-01-24] MEDS: Insulin Lispro 100 UNIT/ML INSULN.PEN SC ×2 (06:53→12:08)
[2019-01-24 07:01] LABS: Bedside Glucose 222 mg/dL (70-110)
--- NOTE | 2019-01-24 07:01 | PN_ITS ---
Patient Problems: Active and Suspected Problems Fracture of ankle, trimalleolar, right, closed (Acute) Right ankle pain (Acute) Fibula fracture (Acute) Pilon fracture of right tibia (Acute) Subjective: This 48-year-old male was seen bedside postoperative day #1 open reduction internal fixation distal fibula fracture and pilon fracture. He denies fever, chill, nausea, vomiting, urinary retention, constipation, shortness of breath, chest pain, calf pain. His pain is rated as a 5 out of 10. - Physical Exam Vitals/I&O's: Vital Signs Temp Pulse Resp BP Pulse Ox 98.6 F 101 H 18 117/61 93 01/24/19 01:55 01/24/19 01:55 01/24/19 01:55 01/24/19 01:55 01/24/19 01:55 Oxygen Flow Rate (L/min) [6] 3 Oxygen Flow Rate (L/min) [5] 2 Oxygen Flow Rate (L/min) [4] 99 Oxygen Flow Rate (L/min) [2] 4 Oxygen Flow Rate (L/min) [1 ( 4 Initial Baseline)] Oxygen Flow Rate (L/min) 2 Oxygen Delivery Method [6] Nasal Cannula Oxygen Delivery Method [5] Nasal Cannula Oxygen Delivery Method [4] Nasal Cannula Oxygen Delivery Method [3] Nasal Cannula Oxygen Delivery Method [2] Nasal Cannula Oxygen Delivery Method [1 ( Nasal Cannula Initial Baseline)] Oxygen Delivery Method Room Air Weight: 113.2 kg Body Mass Index (BMI) 35.8 Intake and Output for Last 24 Hours 01/22/19 01/23/19 01/24/19 23:59 23:59 23:59 Intake Total 1447.5 / 2047.5 5853.34 / 6253.34 1312.5 / 1312.5 Output Total 925 / 925 Balance 1447.5 / 2047.5 4928.34 / 5328.34 1312.5 / 1312.5 General: Alert, Oriented x3, Cooperative HEENT: Atraumatic Lungs: Clear to auscultation, Normal air movement, No wheeze Cardiovascular: Regular rate, Regular Rhythm, No murmurs Extremities: Capillary Refill Less than 3 Seconds - All digits right surgical limb, No Calf Tenderness - Negative Ruby sign bilateral, Edema - Mild Skin: - - Dressing and splint to the right lower extremity are clean dry and intact without strikethrough Musculoskeletal: No Tenderness to Palpation of Joints or Extremities, Muscle Wasting, - - Active range of motion digits right foot Neurological: Sensory exam intact to light touch and pain - All digits right foot Psych/Mental Status: Normal Affect, Appropriate Laboratory Results 01/23/19 04:35: Sodium 134 L, Potassium 4.1, Chloride 101, Carbon Dioxide 27.0, Anion Gap 6, BUN 14, Creatinine 1.02, Estim Creat Clear Calc 89.46, Est GFR (MDRD) Af Amer 99, Est GFR (MDRD) Non-Af 82, BUN/Creatinine Ratio 13.7, Glucose 211 H, Calcium 8.3 L 01/23/19 13:08: POC Glucose 291 H 01/23/19 16:30: POC Glucose 289 H 01/23/19 22:01: POC Glucose 278 H 01/24/19 06:52: POC Glucose 222 H Current Medications Hydrocodone Bitart/Acetaminophen ([place] 5mg-325mg) 1 tablet PO Q6H PRN PRN PRN Reason: Pain Score 4-5/10 Last Admin: 01/24/19 06:47 Dose: 1 tablet Documented by: Calcium/Vitamin D (Os-Fidel 500mg + D) [facility] Last Admin: 01/23/19 18:37 Dose: 1 tablet Documented by: Docusate Sodium (Colace) 100 mg PO BID PRN PRN PRN Reason: Constipation Sodium Chloride () 1,000 mls @ 75 mls/hr IV .[id number] [facility] Last Admin: 01/24/19 06:48 Dose: 75 mls/hr Documented by: Insulin Human Lispro (Humalog Kwikpen (Bkc)) 0 unit SC [facility]; Protocol Last Admin: 01/24/19 06:53 Dose: 4 u Documented by: Morphine Sulfate () 2 mg IV Q3H PRN PRN PRN Reason: Pain Score 6-10/10 Last Admin: 01/23/19 06:50 Dose: 2 mg Documented by: Ondansetron HCl (Zofran) 4 mg IV Q8H PRN PRN PRN Reason: NAUSEA/VOMITING Sodium Chloride () 10 - 40 ml IV UD PRN PRN Reason: SALINE FLUSH Zolpidem Tartrate (Ambien (Generic)) 5 mg PO QHS PRN PRN PRN Reason: INSOMNIA Last Admin: 01/22/19 23:16 Dose: 5 mg Documented by: Medical Necessity - Tobacco Use Smoking Status: Former smoker - smoked for a toatl of 1 year and quit when he was 18 YOA Tobacco Use: Non-smoker Assessment/Plan All Active Problems Fracture of ankle, trimalleolar, right, closed (Acute) Right ankle pain (Acute) Fibula fracture (Acute) Pilon fracture of right tibia (Acute) Postoperative day #1 right open reduction internal fixation of distal fibula fracture and pilon fracture Right ankle pain Diabetes (hemoglobin A1C 7.2 %) I reviewed and discussed his case including his recent intervention and anticipa yousif healing time and management. His postoperative x-rays were also reviewed. His neurovascular status remains intact. He is afebrile and his vital signs are stable. His morning CMP also looks good without gross abnormalities. His vitamin D test results are still pending. His dressing and splint were kept intact this morning and I recommend doing so until he follows up in the outpatient setting. He was advised to ice and elevate for pain and inflammation management. Postoperative pain medication was ordered and he has only needed oral [place] so far. It appears his regional block is wearing off at this time. He is advised to maintain a strict nonweightbearing status to the right lower extremity with assistive device. He will work with physical and occupational therapy to confirm he is able to perform a nonweightbearing status prior to discharge home. Medical management and DVT prophylaxis per primary team is greatly appreciated. It is okay for him to resume DVT prophylaxis medication at this time. We discussed DVT prophylaxis options for time of discharge and he elects to proceed forward with oral medication option, Xarelto. Prescriptions for pain medication and DVT prophylaxis will be left in chart in preparation for discharge home possibly later today. I will call back in this afternoon to confirm how he did with therapy and if his pain is controlled. It is also noted he was recently diagnosed with diabetes and his blood sugar levels was over 200 mg/dL this morning. He will be started on an initial diabetes management plan and will follow-up promptly with Dr. Ring in the outpatient setting. This plan will be reviewed with the hospitalist physician prior to discharge. Bhavna Santiago DPM, [facility] [phone]
[2019-01-24 07:55] VITALS: BP 139/80; PULSE 87; RESP 18; TEMP 36.7; O2SAT 95
--- NOTE | 2019-01-24 08:07 | DCINST_ITS ---
- Discharge Diagnoses Current Active Problems: Current Active and Chronic Problems Fracture of ankle, trimalleolar, right, closed (Acute) Right ankle pain (Acute) Obesity (BMI 30.0-34.9) (Chronic) Glucose intolerance (Chronic) HGBA1C has been as high as 6.0 in the past....but then he lost 25 lbs Low HDL (under 40) (Chronic) Dyslipidemia (Chronic) Fibula fracture (Acute) Pilon fracture of right tibia (Acute) You will use the following diet at home:: Calorie/Carbohydrate Controlled (specify 1200, 1400, etc) - 1800 Your food should be the consistency of: Regular Discharge Activity: May not drive while taking narcotic pain medications. Allergies/Adverse Reactions: Allergies No Known Allergies Allergy (Verified 01/22/19 08:26) Medications to take at Discharge Testosterone Booster DAILY 01/22/19 Hydrocodone/Acetaminophen [[place] 5-325 Tablet] 1 ea PO Q6H PRN PRN 7 Days #30 tab 01/24/19 Metformin HCl 500 mg PO BID #120 tab 01/24/19 Naproxen Sodium 550 mg PO BID PRN PRN 7 Days #14 tab 01/24/19 Rivaroxaban [Xarelto] 10 mg PO DAILY 14 Days #14 tab 01/24/19 The following prescriptions were given: Metformin HCl 500 mg PO BID #120 tab Transmission Status: Received by [facility] Naproxen Sodium 550 mg PO BID PRN PRN 7 Days #14 tab PRN Reason: Pain Score 1-5/10 Prescription Printed Hydrocodone/Acetaminophen [[place] 5-325 Tablet] 1 ea PO Q6H PRN PRN 7 Days #30 tab PRN Reason: Pain Score 6-10/10 Prescription Printed Rivaroxaban [Xarelto] 10 mg PO DAILY 14 Days #14 tab Prescription Printed Primary Care Physician: Yaniv Ring MD [Primary Care Provider] - Please follow up with your Primary Care Physician in: in 5-7 days Test Results: Test results from this visit will be discussed in further detail at your follow- up appointment, if applicable. Please Follow Up With: Bhavna Santiago DPM When: as ordered
--- NOTE | 2019-01-24 09:17 | DS.PCM_ITS ---
Discharge Date and Diagnosis - Problem List Patient Problems: Active and Suspected Problems New onset type 2 diabetes mellitus (Acute) Fracture of ankle, trimalleolar, right, closed (Acute) Right ankle pain (Acute) Fibula fracture (Acute) Pilon fracture of right tibia (Acute) Date of Admission: 01/22/19 Date of Discharge: 01/24/19 - Primary Discharge Diagnosis Active and Suspected Problems New onset type 2 diabetes mellitus (Acute) Fracture of ankle, trimalleolar, right, closed (Acute) Right ankle pain (Acute) Fibula fracture (Acute) Pilon fracture of right tibia (Acute) - Secondary Discharge Diagnosis Chronic Problems Obesity (BMI 30.0-34.9) (Chronic) Glucose intolerance (Chronic) HGBA1C has been as high as 6.0 in the past....but then he lost 25 lbs Low HDL (under 40) (Chronic) Dyslipidemia (Chronic) Hospital Course and Treatment Imaging Results: Clinical Impression(s) from Imaging Studies Tibia/Fibula X-Ray 01/22/19 08:34 IMPRESSION: Trimalleolar ankle fracture with ankle mortise dislocation Electronically Signed: Waldemar Batista DO at 9:34 EST Tel , Service support , Foot X-Ray 01/22/19 08:35 IMPRESSION: Ankle fracture with dislocation. Right foot itself appears within normal limits Electronically Signed: Waldemar Batista DO at 9:33 EST Tel , Service support , Ankle X-Ray 01/22/19 09:48 IMPRESSION: Displaced fractures of the posterior and lateral malleoli. Anterior dislocation of the tibiotalar joint. Electronically Signed: Joe Amin, at 7:08 EST Tel , Service support , Ankle X-Ray 01/22/19 11:11 IMPRESSION: No significant change demonstrated on this limited, single view exam. Electronically Signed: Angelo Mercado, at 11:44 EST Tel , Service support , Ankle X-Ray 01/22/19 11:32 IMPRESSION: Digital documentation images as described. Electronically Signed: Hayden Bello MD at 14:18 EST , Service support , Ankle X-Ray 01/22/19 12:42 IMPRESSION: Right ankle fracture dislocation status post reduction of the tibiotalar dislocation. Electronically Signed: Lourdes Garrido MD at 13:58 EST Tel , Service support , 3D Reconstruction 01/22/19 13:16 IMPRESSION: Trimalleolar fracture with disruption of the ankle mortise which includes Comminuted fracture of the distal tibia with persistent displacement and dislocation. Comminuted fracture of the distal fibula. Electronically Signed: Lourdes Garrido MD at 15:04 EST Tel , Service support , Lower Extremity CT 01/22/19 13:16 IMPRESSION: Trimalleolar fracture with disruption of the ankle mortise which includes Comminuted fracture of the distal tibia with persistent displacement and dislocation. Comminuted fracture of the distal fibula. Electronically Signed: Lourdes Garrido MD at 15:04 EST Tel , Service support , Ankle X-Ray 01/23/19 08:30 IMPRESSION: As above Electronically Signed: Angelo Mercado, at 13:27 EST Tel , Service support , Ankle X-Ray 01/23/19 13:06 IMPRESSION: Status post open reduction and internal fixation with intact hardware and satisfactory alignment. Electronically Signed: Angelo Mercado, at 16:32 EST Tel , Service support , Summary of Care Provided: The patient is a 48 year old M admitted with a right fibular fracture sustained while was walking his dog. Patient underwent open reduction and internal fixation of the right fibula fracture on 01/23/[address] Santiago. Patient was also noted to be hyperglycemic during his hospital stay diagnosed with diabetes mellitus type 1.. Patient did receive diabetic education and was discharged home on metformin. Plan is for patient to follow-up with Dr. Mosley his PCP for subsequent care. He is also scheduled to follow-up with Dr. Santiago for subsequent wound care. Patient was noted to have a BMI of 35.8 weight loss was advised prior to patient being discharged Patient Problems: Active and Suspected Problems New onset type 2 diabetes mellitus (Acute) Fracture of ankle, trimalleolar, right, closed (Acute) Right ankle pain (Acute) Fibula fracture (Acute) Pilon fracture of right tibia (Acute) - Physical Exam Vitals/I&O's: Vital Signs Temp Pulse Resp BP Pulse Ox 98.6 F 101 H 18 117/61 93 01/24/19 01:55 01/24/19 01:55 01/24/19 01:55 01/24/19 01:55 01/24/19 01:55 Oxygen Flow Rate (L/min) [6] 3 Oxygen Flow Rate (L/min) [5] 2 Oxygen Flow Rate (L/min) [4] 99 Oxygen Flow Rate (L/min) [2] 4 Oxygen Flow Rate (L/min) [1 ( 4 Initial Baseline)] Oxygen Flow Rate (L/min) 2 Oxygen Delivery Method [6] Nasal Cannula Oxygen Delivery Method [5] Nasal Cannula Oxygen Delivery Method [4] Nasal Cannula Oxygen Delivery Method [3] Nasal Cannula Oxygen Delivery Method [2] Nasal Cannula Oxygen Delivery Method [1 ( Nasal Cannula Initial Baseline)] Oxygen Delivery Method Room Air Weight: 113.2 kg Body Mass Index (BMI) 35.8 Intake and Output for Last 24 Hours 01/22/19 01/23/19 01/24/19 23:59 23:59 23:59 Intake Total 1447.5 / 2047.5 5853.34 / 8263.34 1792.5 / 1792.5 Output Total 925 / 925 Balance 1447.5 / 2047.5 4928.34 / 5328.34 1792.5 / 1792.5 General: Alert HEENT: Atraumatic Neck: Supple Lungs: Normal air movement Psych/Mental Status: Normal Affect Laboratory Results 01/22/19 14:59: Vitamin D 25-Hydroxy 20.0 L 01/23/19 13:08: POC Glucose 291 H 01/23/19 16:30: POC Glucose 289 H 01/23/19 22:01: POC Glucose 278 H 01/24/19 06:52: POC Glucose 222 H Current Medications Hydrocodone Bitart/Acetaminophen ([place] 5mg-325mg) 1 tablet PO Q6H PRN PRN PRN Reason: Pain Score 4-5/10 Last Admin: 01/24/19 06:47 Dose: 1 tablet Documented by: Calcium/Vitamin D (Os-Fidel 500mg + D) [facility] Last Admin: 01/23/19 18:37 Dose: 1 tablet Documented by: Docusate Sodium (Colace) 100 mg PO BID PRN PRN PRN Reason: Constipation Enoxaparin Sodium (Lovenox) 40 mg SC DAILY [facility] Sodium Chloride () 1,000 mls @ 75 mls/hr IV .[id number] [facility] Last Admin: 01/24/19 06:48 Dose: 75 mls/hr Documented by: Insulin Human Lispro (Humalog Kwikpen (Bkc)) 0 unit SC [facility]; Protocol Last Admin: 01/24/19 06:53 Dose: 4 u Documented by: Morphine Sulfate () 2 mg IV Q3H PRN PRN PRN Reason: Pain Score 6-10/10 Last Admin: 01/23/19 06:50 Dose: 2 mg Documented by: Naproxen Sodium (Anaprox Ds) [facility] Ondansetron HCl (Zofran) 4 mg IV Q8H PRN PRN PRN Reason: NAUSEA/VOMITING Sodium Chloride () 10 - 40 ml IV UD PRN PRN Reason: SALINE FLUSH Zolpidem Tartrate (Ambien (Generic)) 5 mg PO QHS PRN PRN PRN Reason: INSOMNIA Last Admin: 01/22/19 23:16 Dose: 5 mg Documented by: Discharge Diet: 1800 Calorie Control Diet Discharge Activity: May not drive while taking narcotic pain medications. Home Medications: Medications to take at Discharge Testosterone Booster DAILY 01/22/19 Hydrocodone/Acetaminophen [[place] 5-325 Tablet] 1 ea PO Q6H PRN PRN 7 Days #30 tab 01/24/19 Metformin HCl 500 mg PO BID #120 tab 01/24/19 Naproxen Sodium 550 mg PO BID PRN PRN 7 Days #14 tab 01/24/19 Rivaroxaban [Xarelto] 10 mg PO DAILY 14 Days #14 tab 01/24/19 Following Prescrptions Were Given to Patient: Metformin HCl 500 mg PO BID #120 tab Transmission Status: Received by [facility] Naproxen Sodium 550 mg PO BID PRN PRN 7 Days #14 tab PRN Reason: Pain Score 1-5/10 Prescription Printed Hydrocodone/Acetaminophen [[place] 5-325 Tablet] 1 ea PO Q6H PRN PRN 7 Days #30 tab PRN Reason: Pain Score 6-10/10 Prescription Printed Rivaroxaban [Xarelto] 10 mg PO DAILY 14 Days #14 tab Prescription Printed Primary Care Physician: Yaniv Ring MD [Primary Care Provider] - Please follow up with your Primary Care Physician in: in 5-7 days Please Follow Up With: Bhavna Santiago DPM When: as ordered Disposition: Home Minutes spent on discharge:: 35 Patient Condition:: Stable Medical Necessity - Tobacco Use Smoking Status: Former smoker - smoked for a toatl of 1 year and quit when he was 18 YOA Tobacco Use: Non-smoker Meaningful Use Info Meaningful Use Diagnoses (Choose all that apply): None applicable Code Visit Inpatient E&M: 63679 Disch Hosp
[2019-01-24] MEDS: Calcium Carb/Vitamin D 1 TABLET Tablet PO (09:33)
[2019-01-24] MEDS: Enoxaparin 40 MG/0.4 ML Syringe SC (09:35)
--- NOTE | 2019-01-24 11:35 | CASEMGMT ---
RN CM Assessment Presentation: Ankle fracture. ORIF, internal fixation of R fibula fracture and R pilon fracture. Intro role of CM and purpose of RN CM assessment. Demographics, PCP and Pharmacy verified. Pt is awake, alert and able to participate in assessment. Pt lives alone in one story apartment. States he has been using crutches to get around, and his boss has standard walker for him to use and will bring over billy. am. Friend will drive pt home and get tub bench and blood glucose monitoring equipment for pt. -Pt's RN notified that pt will need script for blood glucose monitor and supplies to be given to friend prior to discharge. PCP: Dr. Godwin Ring Specialists: Dr. Santiago Preferred Pharmacy: [facility] Insurance: [facility]- uses [place] Prescription Benefit: yes LNOK: none listed Living Arrangements: Lives independently. Pt does not have assist at home, but states his neighbor has offered to help with anything he needs. His friend also will be intermittently available to help. Transportation: Friend or neighbor have stated they will drive him to f/u appointments DME: no new DME scripts are needed. HHC: Pt does not qualify for home health or home health aide under skilled services. Explained to pt and friend. Recommended pt do sink bathing for now until able to safely use shower. Patient DC goals: Home DC PLAN: Home. PT/OT evaluations reviewed, no further therapy recommended at this time. Jakob KOWALSKI RN ACM
--- NOTE | 2019-01-24 11:41 | PCM.DC.POD ---
Discharge Diet: 1800 Calorie Control Diet Discharge Activity: May Not Drive, May not drive while taking narcotic pain medications., May Not Shower - unless shower bag is in place and use a shower chair to prevent falling Weight Bearing Status: No weight bearing Keep extremity elevated above heart level: Right Leg Call your doctor if your incision/area has: Continuous Slow Oozing, Sudden Increased Bleeding, Increased Pain/ Swelling, Increased Redness, Foul Smelling Discharge, Swelling at the incision site Call your doctor if you observe: Fever of 101 or Higher, Numbness or Tingling, Shortness of breath, Calf discomfort, Uncontrolled pain Cleanse incision/area with: Keep Dressing Clean & Dry, - - Keep splint intact until follow up Allergies/Adverse Reactions: Allergies No Known Allergies Allergy (Verified 01/22/19 08:26) Medications to take at Discharge Testosterone Booster DAILY 01/22/19 Hydrocodone/Acetaminophen [[place] 5-325 Tablet] 1 ea PO Q6H PRN PRN 7 Days #30 tab 01/24/19 Metformin HCl 500 mg PO BID #120 tab 01/24/19 Naproxen Sodium 550 mg PO BID PRN PRN 7 Days #14 tab 01/24/19 Rivaroxaban [Xarelto] 10 mg PO DAILY 14 Days #14 tab 01/24/19 The following prescriptions were given: Metformin HCl 500 mg PO BID #120 tab Transmission Status: Received by [facility] Naproxen Sodium 550 mg PO BID PRN PRN 7 Days #14 tab PRN Reason: Pain Score 1-5/10 Prescription Printed Hydrocodone/Acetaminophen [[place] 5-325 Tablet] 1 ea PO Q6H PRN PRN 7 Days #30 tab PRN Reason: Pain Score 6-10/10 Prescription Printed Rivaroxaban [Xarelto] 10 mg PO DAILY 14 Days #14 tab Prescription Printed Primary Care Physician: Yaniv Ring MD [Primary Care Provider] - Please follow up with your Primary Care Physician in: in 5-7 days Test Results: Test results from this visit will be discussed in further detail at your follow-up appointment, if applicable. Please Follow Up With: Bhavna Santiago DPM When: 1 week at [facility]. Call [phone] to schedule / questions. Proposed Discharge Date: 01/24/19
[2019-01-24 11:45] LABS: Bedside Glucose 237 mg/dL (70-110)
--- NOTE | 2019-01-24 12:54 | CASEMGMT ---
SAMANTHA CM Note: Pt's insurance is not active. Updated insurance card faxed to [facility]. Call to Retail pharmacy to notify of updated card, they will reprocess scripts. Jakob KOWALSKI RN ACM
[2019-01-24 13:20] LABS: Bedside Glucose 236 mg/dL (70-110)
--- NOTE | 2019-01-24 13:27 | CASEMGMT ---
SAMANTHA LAURENT Note: Call from [facility]. Naprosyn 550 requires a prior authorization or would cost pt $25.00. Pt discussed taking over the counter Naprosyn-RN will speak with him re: this and if pt would like to pay $25.00, can have filled at [facility] retail. Cost of Xarelto will be $212.24 for 10 mg dose (not eligible for savings card). Pt's friend requested cost of Lovenox injections. SAMANTHA LAURENT called to [facility]. Per rep-cost would be $703.50 for 30 day supply of 40 mg Lovenox injections. Pt will have Xarelto script filled. Nursing giving instructions, sent script for glucometer and supplies to Dr. Pearson to sign, then will give to pt's frient who states she will take to [facility] to get supplies and shower chair. No further dc needs identified. Jakob BOYERN RN ACM
[2019-01-24 13:30] VITALS: BP 129/75; PULSE 79; RESP 18; TEMP 36.8; O2SAT 98
[2019-01-24 14:30] VITALS: BP 129/75; PULSE 79; RESP 18; TEMP 36.8; O2SAT 98
== END 2019-01-24 14:32 | disposition home or self-care (01) | DRG 494 ==
LOC: ED 13:05 → MS3 01-24 07:20
PROVIDERS: Internal Medicine; Admitting Provider Podiatrist; Emergency Provider Emergency Medicine; Family Provider Family Medicine; PCP Family Medicine; Referring Provider Podiatrist; Visit Provider Internal Medicine
PROC: 0QSJ04Z Reposition Right Fibula with Internal Fixation Device, Open Approach (ICD-10-PCS; principal; 2019-01-23 08:30)
DX: S82.851A Displaced trimalleolar fracture of right lower leg, initial encounter for closed fracture (principal); Y93.K1 Activity, walking an animal; E66.9 Obesity, unspecified; Z68.35 Body mass index [BMI] 35.0-35.9, adult; E11.9 Type 2 diabetes mellitus without complications; E78.5 Hyperlipidemia, unspecified; W01.0XXA Fall on same level from slipping, tripping and stumbling without subsequent striking against object, initial encounter
CPT/HCPCS: 36415; 73590; 73600; 73610; 73620; 73700; 76000; 76377; 80048; 80053; 80061; 82306; 82962; 83036; 85025; 85610; 85730; 93005; 97161; 97166; 97802; 99152; 99282; C1713; J7030; J7120; A4216; J2405

== ENCOUNTER 2019-04-18 15:00 | Outpatient (RCR) | payer OTHER, SELFPAY ==
[2019-01-23 08:11] VITALS: BMI 35.8
--- NOTE | 2019-03-16 10:01 | HP.PTEVAL_ITS ---
Patient's Visit Information YOSHI JEFFRIES is a 48 year old M referred to Physical Therapy by Bhavna Santiago DPM with a diagnosis of Right PILON Fracture. Date of Evaluation: 03/16/19 Physical Therapist: Jenny Carlton DPT - Visit Plan Frequency: 2x /Week Duration: 4 Weeks Plan: PILON ORIF 01/22/2019- WBAT- progress to ankle brace and shoe- CAUTION of swelling - Subjective Findings: Patient reports that he was walking the dog (270 lb Mastiff) Jan 21 and the sidwalk was slick- hit an ice spot he fell and broke his ankle. Went to ER- had surgery Jan [address] Santiago PILON fracture ORIF. Non- weight bearing for 6 weeks- then was put in a boot and was told to progress to 50% weight bearing. Is in the boot all the time when weight bearing- but is not using an AD at this point. Has another apt Mar 29. Patient is leaving Mar 31 to go to [place] there about 10 days - back April 09. Reports a little discomfort when he is on it on the outside of the ankle- small pain on the medial side. Worst: 1/10 Best: 0/10 most of the time. Its discomfort more than anything. Feels like a bruise. No radiating pain- no N/T. 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 Sleep: not disturbed. PMHx: might have preDM- working through nutrition Meds: none - Objective Posture: FH, RS- can correct but does not maintain. Gait: antalgic- CAM walker on the right LE. Observation: incision healing well on the medial ankle- incision has scabbing on the lateral aspect of the malleolus and mild redness (pt reports MD is watching it closely). Palpation: tender along lateral malleolus. Girth/Edema: 59 cm Figure 8, 25 cm Mets, 30 cm Mall. ROM: DF: 5 degrees from neutral, PF: 35 degrees, Inv: 40 degrees, Ever: 25 degrees- no pain reports stiffness in DF and Ever. Strength: Ankle: 4+/5 throughout available range. No WB activities tested today as pt has just started WBAT- will assess as appropriate. Flex: HS: moderate, Gastroc: severe - Goals Goal 1:: Patient will be I with HEP and progression Goal Time Frame: 4-6 Weeks Goal 2:: Patient will ambulate >300 feet with a normalized gait pattern and no AD Goal Time Frame: 4-6 Weeks Goal 3:: Patient will SLS for 30 sec without LOB Goal Time Frame: 4-6 Weeks Goal 4:: Patient will report 0/10 pain for 1 week with all normal ADL's Goal Time Frame: 4-6 Weeks - Rehabilitation Potential Physical Therapy Diagnosis: Patient presents with hypomobility- he has decreased ROM, strength, flex and muscular endurance leading to abnormal gait and decreased participation in ADL's. Rehabilitation Potential: Good - Anticipated Interventions Therapeutic Exercise to Include: Strength training, Endurance training, Balance training, Body mechanics, Postural training, Flexibilty training, Gait and locomotor training, Neuromotor development, Passive ROM, Active ROM, Dynamic Lumbar Stabilization TENS: Yes Cryotherapy (ice pack, ice massage): Yes Thermo therapy (hot pack): Yes Ultrasound (thermal/non thermal): No Vasopneumatic device: Yes For the Purpose of:: To decrease swelling/inflammation Thank you for the opportunity to evaluate your patient. For Medicare and Medicare HMO plans, please review the plan of care and approve it. It will need to be FAXED BACK to us at [phone] for Medicare purposes. For Medicare only, by signing this I certify the plan of care. Please let me know if there are questions or concerns regarding this plan of care. Physician Signature: Date:
--- NOTE | 2019-04-18 15:53 | HP.PTREVAL ---
Bhanva Santiago DPM, It has been my pleasure to treat YOSHI JEFFRIES over the last 6 visits for Right PILON Fracture. Please see the progress note below for an update on the physical therapy plan of care! Subjective: Patient reports today was his first day back to work- and he has swelling today due to being on his feet. Squatting is still really challening due to ROM and soreness. Objective/Function: Posture: good throughout. Gait: slightly antalgic- decreased stance on the right LE. HR/TR: able. SLS: 30 sec without LOB. ROM: DF: 10 degrees, PF: 60 degrees Inver: 40 degrees Ever: 30 degrees. Girth: measured after being on his feet ash no compression stocking. Figure 8:61 cm Mall: 31 cm Plan Plan: Hold- will do I HEP- then d/c in a few weeks or re-assess if needed. Goals Goal 1:: Patient will be I with HEP and progression Goal Time Frame: 4-6 Weeks Goal Progress: Goal Met Goal 2:: Patient will ambulate >300 feet with a normalized gait pattern and no AD Goal Time Frame: 4-6 Weeks Goal Progress: Progressing Goal 3:: Patient will SLS for 30 sec without LOB Goal Time Frame: 4-6 Weeks Goal Progress: Goal Met Goal 4:: Patient will report 0/10 pain for 1 week with all normal ADL's Goal Time Frame: 4-6 Weeks Goal Progress: Progressing Anticipated Interventions Therapeutic Exercise to Include: Strength training, Endurance training, Balance training, Body mechanics, Postural training, Flexibilty training, Gait and locomotor training, Neuromotor development, Passive ROM, Active ROM, Dynamic Lumbar Stabilization TENS: Yes Cryotherapy (ice pack, ice massage): Yes Thermo therapy (hot pack): Yes Ultrasound (thermal/non thermal): No Vasopneumatic device: Yes For the Purpose of:: To decrease swelling/inflammation Please do not hesitate to contact me at [phone] by phone or if you have questions or concerns regarding this new plan of care! Sincerely, Jenny Carlton DPT
--- NOTE | 2019-06-21 11:31 | HP.PTDCSUM ---
It has been my pleasure to treat YOSHI JEFFRIES referred by Dr. Bhavna Santiago DPM, with the diagnosis of Right PILON Fracture for a total of 6 visit(s). Discharge Date: Please see the following information for a summary of their discharge status. Subjective: Patient reports today was his first day back to work- and he has swelling today due to being on his feet. Squatting is still really challening due to ROM and soreness. % Improvement: 90 Objective/Function: Posture: good throughout. Gait: slightly antalgic- decreased stance on the right LE. HR/TR: able. SLS: 30 sec without LOB. ROM: DF: 10 degrees, PF: 60 degrees Inver: 40 degrees Ever: 30 degrees. Girth: measured after being on his feet ash no compression stocking. Figure 8:61 cm Mall: 31 cm Goal 1:: Patient will be I with HEP and progression Goal Progress: Goal Met Goal 2:: Patient will ambulate >300 feet with a normalized gait pattern and no AD Goal Progress: Progressing Goal 3:: Patient will SLS for 30 sec without LOB Goal Progress: Goal Met Goal 4:: Patient will report 0/10 pain for 1 week with all normal ADL's Goal Progress: Progressing Plan: Hold- will do I HEP- then d/c in a few weeks or re-assess if needed. If there are questions or concerns regarding this patient's physical therapy, please feel free to call me at [phone]. Thank you for the referral of this patient. Sincerely, Jenny Carlton DPT
== END 2019-04-18 19:00 | disposition home or self-care (01) ==
LOC: PT 15:00
PROVIDERS: PCP Family Medicine; Referring Provider Podiatrist; Visit Provider Podiatrist
DX: Z98.890 Other specified postprocedural states (principal)
CPT/HCPCS: 97110; 97162; 97164

== ENCOUNTER → 2020-01-19 12:30 | Outpatient (CLI) | payer OTHER, SELFPAY ==
[2020-01-19 15:58] LABS: Insulin 12.4 mU/L (2.6-37.6)
[2020-01-19 16:08] LABS: ALB/GLOB Ratio 1.2 RATIO (0.9-2.4); AST(SGOT) 19 U/L (15-37); Alanine Aminotransfer ALT/SGPT 41 U/L (16-61); Albumin, Serum 4.1 g/dL (3.2-5.0); Alkaline Phosphatase 79 U/L (45-117); Anion Gap 6 (5-15); BUN 17 mg/dL (7-18); BUN/Creat Ratio 18.1 RATIO (10-20); Calcium,Total 9.6 mg/dL (8.5-10.1); Chloride 104 mmol/L (98-107); Creatinine, Serum 0.94 mg/dL (0.70-1.30); EST Glomerular Filtration Rate 90 mL/min (>60); Est Glom Filt Rate - Afr Amer 109 mL/min (>60); Globulin 3.4 g/dL (2.2-4.2); Glucose 142 mg/dL (74-106); Potassium 4.3 mmol/L (3.5-5.1); Protein, Total 7.5 g/dL (6.4-8.2); Sodium Level 138 mmol/L (136-145); Thyroid Stim Hormone (TSH) 2.08 uIU/mL (0.358-3.74)
[2020-01-21 15:32] LABS: C-Peptide 5.4 ng/mL (1.1-4.4)
== END ==
PROVIDERS: PCP Family Medicine; Referring Provider Family Medicine; Visit Provider Family Medicine
DX: E11.9 Type 2 diabetes mellitus without complications (principal)
CPT/HCPCS: 36415; 80053; 83525; 84403; 84443; 84681